=== PATIENT | female | born 2000 ===

== ENCOUNTER 2020-02-25 00:01 | Inpatient (IN) | payer MEDICAID ==
[2020-02-25] MEDS ORDERED: Acetaminophen 500 MG Tab PO PRN ×3 (00:46→13:15)
[2020-02-25] MEDS ORDERED: diphenhydrAMINE 50 MG Cap PO PRN (00:46)
[2020-02-25 01:42] LABS: BLOOD UREA NITROGEN,BUN 10 mg/dL (7.0-18.0); CARBON DIOXIDE,CO2 20.5 mmol/L (21.0-32.0); CHLORIDE,CL 103 mmol/L (98-107); GLUCOSE RANDOM 101 mg/dL (74-106); POTASSIUM,K 4.1 mmol/L (3.5-5.1); SODIUM,NA 138 mmol/L (136-145)
[2020-02-25] MEDS ORDERED: Ondansetron 4 MG/2 ML SDV IVPUSH PRN (03:24)
[2020-02-25] MEDS ORDERED: hydrOXYzine Pamoate 25 MG Cap PO PRN (03:24)
[2020-02-25] MEDS ORDERED: Butorphanol 1 MG/ML SDV IVPUSH PRN ×3 (03:25→04:56)
[2020-02-25] MEDS ORDERED: Lactated Ringers 1,000 ML IV ONE (03:25)
[2020-02-25] MEDS ORDERED: Water For Irrigation,Sterile 1,000 ML Container IRR PRN (04:48)
[2020-02-25] MEDS ORDERED: Sodium Chloride 0.9% 10 ML SDV IV PRN (04:48)
[2020-02-25] MEDS ORDERED: Sodium Chloride 0.9% 2.5 ML Syringe FLUSH PRN (04:48)
[2020-02-25] MEDS ORDERED: Methylergonovine 0.2 MG/1 ML Amp IM PRN (04:48)
[2020-02-25] MEDS ORDERED: Carboprost Tromethamine 250 MCG/1 ML Amp IM PRN (04:48)
[2020-02-25] MEDS ORDERED: Lidocaine 1% 50 ML MDV INJECT PRN (04:48)
[2020-02-25] MEDS ORDERED: Misoprostol 200 MCG Tab PO PRN (04:48)
[2020-02-25] MEDS ORDERED: Sodium Chloride 0.9% 10 ML Syringe FLUSH PRN (04:48)
[2020-02-25] MEDS ORDERED: Tranexamic Acid 1,000 MG in Sodium Chloride 0.9% 100 ML IV PRN (04:48)
[2020-02-25] MEDS ORDERED: Nalbuphine 10 MG/1 ML Vial IVPUSH PRN (04:48)
[2020-02-25] MEDS ORDERED: Oxytocin/0.9 % Sodium Chloride 30 UNIT/500 ML BAG IV SCH (05:00)
[2020-02-25] MEDS: Lactated Ringers 1,000 ML IV SCH ×2 (05:27→06:26)
[2020-02-25] MEDS ORDERED: fentaNYL 100 MCG/2 ML SDV ONE (05:54)
[2020-02-25] MEDS ORDERED: Ropivacaine 0.2% PF 2 MG/ML 20 ML SDV ONE (05:55)
[2020-02-25] MEDS ORDERED: Ropivacaine HCl/PF 100 ML ONE (05:55)
--- NOTE | 2020-02-25 06:38 | PCM.PREANE ---
Preanesthetic Assessment - Procedure Proposed Procedure: CHIVO - Anesthesia/Transfusion/Family Hx Anesthesia History: Prior Anesthesia Without Reaction Family History of Anesthesia Reaction: No Transfusion History: No Prior Transfusion(s) Intubation History: Unknown - Review of Systems General: No Symptoms Pulmonary: No Symptoms Cardiovascular: Other (Recent elevated BP. Pre-eclampsia tests negative.) Gastrointestinal: No Symptoms Neurological: Other (History of Scoliosis.) Other: Reports: Anxiety - Physical Assessment NPO Status Date: 02/25/20 NPO Status Time: 05:00 (Clear liquids) Height: 1.65 m Weight: 81.647 kg ASA Class: 2 Mental Status: Alert & Oriented x3 Airway Class: Mallampati = 1 Dentition: Reports: Normal Dentition Thyro-Mental Finger Breadths: 3 Mouth Opening Finger Breadths: 3 ROM/Head Extension: Full Lungs: Clear to Auscultation Cardiovascular: Regular Rate - Lab Values: Laboratory Last Values WBC 10.44 K/uL (4.0-11.0) 02/25/20 01:09 RBC 4.51 M/uL (4.30-5.90) 02/25/20 01:09 Hgb 13.5 g/dL (12.0-16.0) 02/25/20 01:09 Hct 40.1 % (36.0-46.0) 02/25/20 01:09 MCV 88.9 fL (80.0-98.0) 02/25/20 01:09 MCH 29.9 pg (27.0-32.0) 02/25/20 01:09 MCHC 33.7 g/dL (31.0-37.0) 02/25/20 01:09 RDW Std Deviation 43.2 fl (28.0-62.0) 02/25/20 01:09 RDW Coeff of Marcia 14 % (11.0-15.0) 02/25/20 01:09 Plt Count 172 K/uL (150-400) 02/25/20 01:09 MPV 11.60 fL (7.40-12.00) 02/25/20 01:09 Neut % (Auto) 69.9 % (48.0-80.0) 02/25/20 01:09 Lymph % (Auto) 18.9 % (16.0-40.0) 02/25/20 01:09 [place] % (Auto) 9.6 % (0.0-15.0) 02/25/20 01:09 Eos % (Auto) 1.4 % (0.0-7.0) 02/25/20 01:09 Baso % (Auto) 0.2 % (0.0-1.5) 02/25/20 01:09 Neut # (Auto) 7.3 K/uL (1.4-5.7) H 02/25/20 01:09 Lymph # (Auto) 2.0 K/uL (0.6-2.4) 02/25/20 01:09 [place] # (Auto) 1.0 K/uL (0.0-0.8) H 02/25/20 01:09 Eos # (Auto) 0.2 K/uL (0.0-0.7) 02/25/20 01:09 Baso # (Auto) 0.0 K/uL (0.0-0.1) 02/25/20 01:09 Sodium 138 mmol/L (136-145) 02/25/20 01:09 Potassium 4.1 mmol/L (3.5-5.1) 02/25/20 01:09 Chloride 103 mmol/L (98-107) 02/25/20 01:09 Carbon Dioxide 20.5 mmol/L (21.0-32.0) L 02/25/20 01:09 BUN 10 mg/dL (7.0-18.0) 02/25/20 01:09 Creatinine 0.7 mg/dL (0.6-1.0) 02/25/20 01:09 Est Cr Clr Drug Dosing 116.32 mL/min 02/25/20 01:09 Estimated GFR (MDRD) > 60.0 ml/min 02/25/20 01:09 Glucose 101 mg/dL (74-106) 02/25/20 01:09 Uric Acid 4.2 mg/dL (2.6-7.2) 02/25/20 01:09 Calcium 9.1 mg/dL (8.5-10.1) 02/25/20 01:09 Total Bilirubin 0.2 mg/dL (0.2-1.0) 02/25/20 01:09 AST 18 IU/L (15-37) 02/25/20 01:09 ALT 17 IU/L (14-63) 02/25/20 01:09 Alkaline Phosphatase 122 U/L (46-116) H 02/25/20 01:09 Total Protein 7.4 g/dL (6.4-8.2) 02/25/20 01:09 Albumin 3.2 g/dL (3.4-5.0) L 02/25/20 01:09 Globulin 4.2 g/dL (2.6-4.0) H 02/25/20 01:09 Albumin/Globulin Ratio 0.8 (0.9-1.6) L 02/25/20 01:09 Urine Color YELLOW 02/25/20 01:10 Urine Appearance CLEAR 02/25/20 01:10 Urine pH 6.5 (5.0-8.0) 02/25/20 01:10 Ur Specific [place] 1.010 (1.001-1.035) 02/25/20 01:10 Urine Protein NEGATIVE mg/dL (NEGATIVE) 02/25/20 01:10 Urine Glucose (UA) NEGATIVE mg/dL (NEGATIVE) 02/25/20 01:10 Urine Ketones NEGATIVE mg/dL (NEGATIVE) 02/25/20 01:10 Urine Occult Blood NEGATIVE (NEGATIVE) 02/25/20 01:10 Urine Nitrite NEGATIVE (NEGATIVE) 02/25/20 01:10 Urine Bilirubin NEGATIVE (NEGATIVE) 02/25/20 01:10 Urine Urobilinogen 0.2 EU/dL (<2.0) 02/25/20 01:10 Ur Leukocyte Esterase NEGATIVE (NEGATIVE) 02/25/20 01:10 Urine RBC NONE SEEN (0-2/HPF) 02/25/20 01:10 Urine WBC 0-1 (0-5/HPF) 02/25/20 01:10 Ur Epithelial Cells RARE (NONE-FEW) 02/25/20 01:10 Urine Bacteria RARE (NEGATIVE) 02/25/20 01:10 Urine Mucus LIGHT (NONE-MOD) 02/25/20 01:10 Ur Random Creatinine 50.0 mg/dL 02/25/20 01:10 U Random Total Protein 11.0 mg/dL (<11.9) 02/25/20 01:10 Protein/Creatinin Ratio 0.2 02/25/20 01:10 COVID-19 (MARSHA) NEGATIVE (NEGATIVE) 02/25/20 04:29 Blood Type A POSITIVE 02/25/20 01:09 Antibody Screen NEGATIVE 02/25/20 01:09 - Allergies Allergies/Adverse Reactions: Allergies Allergy/AdvReac Type Severity Reaction Status Date / Time No Known Allergies Allergy Verified 02/25/20 00:21 - Blood Blood Available: No Product(s) Available: None - Anesthesia Plan Pre-Op Medication Ordered: None - Acknowledgements Anesthesia Type Planned: Epidural Pt an Appropriate Candidate for the Planned Anesthesia: Yes Alternatives and Risks of Anesthesia Discussed w Pt/Guardian: Yes Pt/Guardian Understands and Agrees with Anesthesia Plan: Yes Additional Comments: Discussed. ? answered. Accepts. Wishes to proceed. PreAnesthesia Questionnaire Gastrointestinal History: Reports: Other (See Below) Other Gastrointestinal History: Nausea through - takes Zofran [employer] History: Reports: Musculoskeletal History: Reports: None Psychiatric History: Reports: Anxiety Other Psychiatric History: Pt. denies anxiety but states she has "anxiety tendencies" - Past Surgical History Musculoskeletal Surgical History: Reports: Other (See Below) Other Musculoskeletal Surgeries/Procedures:: Right Knee, non malignant tumor removal. - SUBSTANCE USE Smoking Status *Q: Never Smoker Tobacco Use Within Last Twelve Months: No Second Hand Smoke Exposure: No Recreational Drug Use History: No - HOME MEDS Home Medications: Home Meds Ondansetron [Zofran] 1 tab PO Q6HR PRN 02/25/20 [History] Vit #76/Iron,Carb/Fa [Pnv 29-1 Tablet] 1 tab PO DAILY 02/25/20 [History] - CURRENT (IN HOUSE) MEDS Current Meds: Current Medications Acetaminophen (Tylenol Extra Strength) 1,000 mg PO Q6H PRN PRN Reason: Pain Last Admin: 02/25/20 02:05 Dose: 1,000 mg Documented by: Butorphanol Tartrate (Stadol) 1 mg IVPUSH Q1H PRN PRN Reason: Pain Butorphanol Tartrate (Stadol) 1 mg IVPUSH Q1H PRN PRN Reason: Pain Carboprost Tromethamine (Hemabate Ds) 250 mcg IM ASDIRECTED PRN PRN Reason: Post Hemorrhage Diphenhydramine HCl (Benadryl) 50 mg PO ONETIME PRN PRN Reason: Pain Last Admin: 02/25/20 02:06 Dose: 50 mg Documented by: Hydroxyzine Pamoate (Vistaril) 25 mg PO Q6H PRN PRN Reason: Pain Last Admin: 02/25/20 03:37 Dose: 25 mg Documented by: Lactated Ringer's (Ringers, Lactated) 1,000 mls @ 150 mls/hr IV ASDIRECTED ANEL Last Infusion: 02/25/20 06:28 Dose: 150 mls/hr Documented by: Oxytocin/Sodium Chloride (Oxytocin 30 Unit/500 Ml-Ns) 30 unit in 500 mls @ 999 mls/hr IV TITRATE [facility] Tranexamic Acid 1,000 mg/ (Sodium Chloride) 110 mls @ 660 mls/hr IV ONETIME PRN PRN Reason: Bleeding Lidocaine HCl (Xylocaine 1%) 50 ml INJECT ONETIME PRN PRN Reason: Laceration repair Methylergonovine Maleate (Methergine) 0.2 mg IM ASDIRECTED PRN PRN Reason: Post Hemorrhage Misoprostol (Cytotec) 200 mcg PO ONETIME PRN PRN Reason: Post Hemorrhage Nalbuphine HCl (Nubain) 10 mg IVPUSH Q1H PRN PRN Reason: Pain (severe 7-10) Ondansetron HCl (Zofran) 4 mg IVPUSH Q6H PRN PRN Reason: Nausea Last Admin: 02/25/20 03:44 Dose: 4 mg Documented by: Sodium Chloride (Saline Flush) 10 ml FLUSH ASDIRECTED PRN PRN Reason: Keep Vein Open Sodium Chloride (Saline Flush) 2.5 ml FLUSH ASDIRECTED PRN PRN Reason: Keep Vein Open Sodium Chloride (Normal Saline) 10 ml IV ASDIRECTED PRN PRN Reason: IV Use Sterile Water (Sterile Water For Irrigation) 1,000 ml IRR ASDIRECTED PRN PRN Reason: delivery Discontinued Medications Butorphanol Tartrate (Stadol) 1 mg IVPUSH Q1H PRN PRN Reason: Pain Last Admin: 02/25/20 04:24 Dose: 1 mg Documented by: Fentanyl (Sublimaze) Confirm Administered Dose 100 mcg .ROUTE .STK-MED ONE Stop: 02/25/20 05:55 Lactated Ringer's (Ringers, Lactated) 1,000 mls @ 999 mls/hr IV .BOLUS ONE Stop: 02/25/20 04:25 Last Infusion: 02/25/20 05:27 Dose: Infused Documented by: Ropivacaine (Naropin 0.2%) Confirm Administered Dose 100 mls @ as directed .ROUTE .[facility] ONE Stop: 02/25/20 05:56 Ropivacaine (Naropin 0.2%) Confirm Administered Dose 20 ml .[address] .[facility] ONE Stop: 02/25/20 05:56
--- NOTE | 2020-02-25 06:41 | PCM.SN.2 ---
- Free Text/Narrative Note: Requested CHIVO. Discussed, ? answered. Permit signed. Hx scoliosis. Pain 03/27. 4-5 cm. Procedure without issues. Pain 0/10 post.
--- NOTE | 2020-02-25 07:06 | PCM48HPAN ---
Post Anesthesia Note - EVALUATION WITHIN 48HRS OF ANESTHETIC Vital Signs in Normal Range: Yes Patient Participated in Evaluation: Yes Respiratory Function Stable: Yes Airway Patent: Yes Cardiovascular Function Stable: Yes Hydration Status Stable: Yes Pain Control Satisfactory: Yes Nausea and Vomiting Control Satisfactory: Yes Mental Status Recovered: Yes
[2020-02-25] MEDS ORDERED: oxyCODONE 5 MG Tab PO PRN (13:15)
[2020-02-25] MEDS ORDERED: Ibuprofen 400 MG Tab PO PRN (13:15)
[2020-02-25] MEDS ORDERED: Witch Hazel Medicated Pads 40/Jar TOP PRN (13:15)
[2020-02-25] MEDS ORDERED: Measles, Mumps & Rubella Vaccine 0.5 ML SDV SUBCUT ONE (13:15)
[2020-02-25] MEDS ORDERED: Docusate Sodium 100 MG Cap PO PRN (13:15)
[2020-02-25] MEDS ORDERED: Bisacodyl 10 MG Supp RECTAL PRN (13:15)
[2020-02-25] MEDS ORDERED: Lanolin 100% Cream 7 GM Tube TOP PRN (13:15)
[2020-02-25] MEDS ORDERED: Ibuprofen 800 MG Tab PO PRN (13:15)
[2020-02-25] MEDS ORDERED: Benzocaine/Menthol 20%-0.5% Spray 78 GM Cannister TOP PRN (13:15)
--- NOTE | 2020-02-25 13:17 | PCM.DEL ---
L & D Note - General Info Date of Service: 02/25/20 - Delivery Note Labor: Spontaneous Delivery Outcome: Livebirth Delivery Method: Spontaneous Vaginal Delivery-Single Delivery Mode: Spontaneous Presentation: Right Occiput Anterior (VICENTE) Nuchal Cord: None Anesthesia Type: Epidural Amniotic Fluid Description: Clear Episiotomy Type: None Laceration: Sulcus Suture type: Vicryl Suture size: 2-0 (2-0 and 3-0) Placenta: Intact, Spontaneous Cord: 3 Vessels Estimated Blood Loss: 300 Resuscitation Needed: Yes : Suctioned, Stimulated, Warmed Provider: Jeovanny To Score 1 min: 9 Score 5 min: 8 Second Stage Interventions: Reports: Pushing Effectively - General Info Date of Service: 02/25/20 Functional Status: Reports: Pain Controlled - Review of Systems General: Reports: No Symptoms HEENT: Reports: No Symptoms Pulmonary: Reports: No Symptoms Cardiovascular: Reports: No Symptoms Gastrointestinal: Reports: No Symptoms Genitourinary: Reports: No Symptoms Musculoskeletal: Reports: No Symptoms Skin: Reports: No Symptoms Neurological: Reports: No Symptoms Psychiatric: Reports: No Symptoms - Patient Data Weight - Most Recent: 180 lb I&O - Last 24 Hours: Intake & Output 02/24/20 02/25/20 02/25/20 22:59 06:59 14:59 Intake Total 1999 Balance 1999 Lab Results Last 24 Hours: Laboratory Results - last 24 hr 02/25/20 02/25/20 02/25/20 Range/Units 01:09 01:09 01:09 WBC 10.44 (4.0-11.0) K/uL RBC 4.51 (4.30-5.90) M/uL Hgb 13.5 (12.0-16.0) g/dL Hct 40.1 (36.0-46.0) % MCV 88.9 (80.0-98.0) fL MCH 29.9 (27.0-32.0) pg MCHC 33.7 (31.0-37.0) g/dL RDW Std Deviation 43.2 (28.0-62.0) fl RDW Coeff of Marcia 14 (11.0-15.0) % Plt Count 172 (150-400) K/uL MPV 11.60 (7.40-12.00) fL Neut % (Auto) 69.9 (48.0-80.0) % Lymph % (Auto) 18.9 (16.0-40.0) % [place] % (Auto) 9.6 (0.0-15.0) % Eos % (Auto) 1.4 (0.0-7.0) % Baso % (Auto) 0.2 (0.0-1.5) % Neut # (Auto) 7.3 H (1.4-5.7) K/uL Lymph # (Auto) 2.0 (0.6-2.4) K/uL [place] # (Auto) 1.0 H (0.0-0.8) K/uL Eos # (Auto) 0.2 (0.0-0.7) K/uL Baso # (Auto) 0.0 (0.0-0.1) K/uL Sodium 138 (136-145) mmol/L Potassium 4.1 (3.5-5.1) mmol/L Chloride 103 (98-107) mmol/L Carbon Dioxide 20.5 L (21.0-32.0) mmol/L BUN 10 (7.0-18.0) mg/dL Creatinine 0.7 (0.6-1.0) mg/dL Est Cr Clr Drug Dosing 116.32 mL/min Estimated GFR (MDRD) > 60.0 ml/min Glucose 101 (74-106) mg/dL Uric Acid 4.2 (2.6-7.2) mg/dL Calcium 9.1 (8.5-10.1) mg/dL Total Bilirubin 0.2 (0.2-1.0) mg/dL AST 18 (15-37) IU/L ALT 17 (14-63) IU/L Alkaline Phosphatase 122 H (46-116) U/L Total Protein 7.4 (6.4-8.2) g/dL Albumin 3.2 L (3.4-5.0) g/dL Globulin 4.2 H (2.6-4.0) g/dL Albumin/Globulin Ratio 0.8 L (0.9-1.6) Urine Color Urine Appearance Urine pH (5.0-8.0) Ur Specific [place] (1.001-1.035) Urine Protein (NEGATIVE) mg/dL Urine Glucose (UA) (NEGATIVE) mg/dL Urine Ketones (NEGATIVE) mg/dL Urine Occult Blood (NEGATIVE) Urine Nitrite (NEGATIVE) Urine Bilirubin (NEGATIVE) Urine Urobilinogen (<2.0) EU/dL Ur Leukocyte Esterase (NEGATIVE) Urine RBC (0-2/HPF) Urine WBC (0-5/HPF) Ur Epithelial Cells (NONE-FEW) Urine Bacteria (NEGATIVE) Urine Mucus (NONE-MOD) Ur Random Creatinine mg/dL U Random Total Protein (<11.9) mg/dL Protein/Creatinin Ratio COVID-19 (MARSHA) (NEGATIVE) Blood Type A POSITIVE Antibody Screen NEGATIVE 02/25/20 02/25/20 02/25/20 Range/Units 01:10 01:10 04:29 WBC (4.0-11.0) K/uL RBC (4.30-5.90) M/uL Hgb (12.0-16.0) g/dL Hct (36.0-46.0) % MCV (80.0-98.0) fL MCH (27.0-32.0) pg MCHC (31.0-37.0) g/dL RDW Std Deviation (28.0-62.0) fl RDW Coeff of Marcia (11.0-15.0) % Plt Count (150-400) K/uL MPV (7.40-12.00) fL Neut % (Auto) (48.0-80.0) % Lymph % (Auto) (16.0-40.0) % [place] % (Auto) (0.0-15.0) % Eos % (Auto) (0.0-7.0) % Baso % (Auto) (0.0-1.5) % Neut # (Auto) (1.4-5.7) K/uL Lymph # (Auto) (0.6-2.4) K/uL [place] # (Auto) (0.0-0.8) K/uL Eos # (Auto) (0.0-0.7) K/uL Baso # (Auto) (0.0-0.1) K/uL Sodium (136-145) mmol/L Potassium (3.5-5.1) mmol/L Chloride (98-107) mmol/L Carbon Dioxide (21.0-32.0) mmol/L BUN (7.0-18.0) mg/dL Creatinine (0.6-1.0) mg/dL Est Cr Clr Drug Dosing mL/min Estimated GFR (MDRD) ml/min Glucose (74-106) mg/dL Uric Acid (2.6-7.2) mg/dL Calcium (8.5-10.1) mg/dL Total Bilirubin (0.2-1.0) mg/dL AST (15-37) IU/L ALT (14-63) IU/L Alkaline Phosphatase (46-116) U/L Total Protein (6.4-8.2) g/dL Albumin (3.4-5.0) g/dL Globulin (2.6-4.0) g/dL Albumin/Globulin Ratio (0.9-1.6) Urine Color YELLOW Urine Appearance CLEAR Urine pH 6.5 (5.0-8.0) Ur Specific [place] 1.010 (1.001-1.035) Urine Protein NEGATIVE (NEGATIVE) mg/dL Urine Glucose (UA) NEGATIVE (NEGATIVE) mg/dL Urine Ketones NEGATIVE (NEGATIVE) mg/dL Urine Occult Blood NEGATIVE (NEGATIVE) Urine Nitrite NEGATIVE (NEGATIVE) Urine Bilirubin NEGATIVE (NEGATIVE) Urine Urobilinogen 0.2 (<2.0) EU/dL Ur Leukocyte Esterase NEGATIVE (NEGATIVE) Urine RBC NONE SEEN (0-2/HPF) Urine WBC 0-1 (0-5/HPF) Ur Epithelial Cells RARE (NONE-FEW) Urine Bacteria RARE (NEGATIVE) Urine Mucus LIGHT (NONE-MOD) Ur Random Creatinine 50.0 mg/dL U Random Total Protein 11.0 (<11.9) mg/dL Protein/Creatinin Ratio 0.2 COVID-19 (MARSHA) NEGATIVE (NEGATIVE) Blood Type Antibody Screen Med Orders - Current: Current Medications Acetaminophen (Tylenol Extra Strength) 1,000 mg PO Q6H PRN PRN Reason: Pain Last Admin: 02/25/20 02:05 Dose: 1,000 mg Documented by: Butorphanol Tartrate (Stadol) 1 mg IVPUSH Q1H PRN PRN Reason: Pain Butorphanol Tartrate (Stadol) 1 mg IVPUSH Q1H PRN PRN Reason: Pain Carboprost Tromethamine (Hemabate Ds) 250 mcg IM ASDIRECTED PRN PRN Reason: Post Hemorrhage Diphenhydramine HCl (Benadryl) 50 mg PO ONETIME PRN PRN Reason: Pain Last Admin: 02/25/20 02:06 Dose: 50 mg Documented by: Hydroxyzine Pamoate (Vistaril) 25 mg PO Q6H PRN PRN Reason: Pain Last Admin: 02/25/20 03:37 Dose: 25 mg Documented by: Lactated Ringer's (Ringers, Lactated) 1,000 mls @ 150 mls/hr IV ASDIRECTED ANEL Last Infusion: 02/25/20 06:28 Dose: 150 mls/hr Documented by: Oxytocin/Sodium Chloride (Oxytocin 30 Unit/500 Ml-Ns) 30 unit in 500 mls @ 999 mls/hr IV TITRATE ANEL Last Admin: 02/25/20 12:29 Dose: 999 mls/hr Documented by: Tranexamic Acid 1,000 mg/ (Sodium Chloride) 110 mls @ 660 mls/hr IV ONETIME PRN PRN Reason: Bleeding Lidocaine HCl (Xylocaine 1%) 50 ml INJECT ONETIME PRN PRN Reason: Laceration repair Methylergonovine Maleate (Methergine) 0.2 mg IM ASDIRECTED PRN PRN Reason: Post Hemorrhage Misoprostol (Cytotec) 200 mcg PO ONETIME PRN PRN Reason: Post Hemorrhage Nalbuphine HCl (Nubain) 10 mg IVPUSH Q1H PRN PRN Reason: Pain (severe 7-10) Ondansetron HCl (Zofran) 4 mg IVPUSH Q6H PRN PRN Reason: Nausea Last Admin: 02/25/20 03:44 Dose: 4 mg Documented by: Sodium Chloride (Saline Flush) 10 ml FLUSH ASDIRECTED PRN PRN Reason: Keep Vein Open Sodium Chloride (Saline Flush) 2.5 ml FLUSH ASDIRECTED PRN PRN Reason: Keep Vein Open Sodium Chloride (Normal Saline) 10 ml IV ASDIRECTED PRN PRN Reason: IV Use Sterile Water (Sterile Water For Irrigation) 1,000 ml IRR ASDIRECTED PRN PRN Reason: delivery Discontinued Medications Butorphanol Tartrate (Stadol) 1 mg IVPUSH Q1H PRN PRN Reason: Pain Last Admin: 02/25/20 04:24 Dose: 1 mg Documented by: Fentanyl (Sublimaze) Confirm Administered Dose 100 mcg .ROUTE .STK-MED ONE Stop: 02/25/20 05:55 Lactated Ringer's (Ringers, Lactated) 1,000 mls @ 999 mls/hr IV .BOLUS ONE Stop: 02/25/20 04:25 Last Infusion: 02/25/20 05:27 Dose: Infused Documented by: Ropivacaine (Naropin 0.2%) Confirm Administered Dose 100 mls @ as directed .ROUTE .STK-MED ONE Stop: 02/25/20 05:56 Ropivacaine (Naropin 0.2%) Confirm Administered Dose 20 ml .ROUTE .STK-MED ONE Stop: 02/25/20 05:56 - Exam Quality Assessment: Supplemental Oxygen - Problem List & Annotations (1) Vaginal delivery SNOMED Code(s): 683770924 Code(s): O80 - ENCOUNTER FOR FULL-TERM UNCOMPLICATED DELIVERY Status: Acute Current Visit: Yes - Problem List Review Problem List Initiated/Reviewed/Updated: Yes - Assessment Assessment:: 19yo s/p - Plan Plan:: -routine post care -CBC tomorrow -MMR before discharge
--- NOTE | 2020-02-25 20:46 | OR ---
SURGEON: Jeovanny To MD DATE OF PROCEDURE: 02/25/2020 INDICATION FOR PROCEDURE: A 19-year-old, G1, P0, at 40 weeks and 1 day, admitted with early labor. The patient had regular contractions and made cervical change to 4 cm. She had an epidural for anesthesia with good pain control. She had category 1 tracing and was GBS negative. She had AROM for augmentation of labor. She progressed to fully dilated and having the urge to push. PREOPERATIVE DIAGNOSIS: Kern intrauterine at 40 weeks and 1 day. POSTOPERATIVE DIAGNOSIS: [place]ern intrauterine at 40 weeks and 1 day. PROCEDURE PERFORMED: Normal spontaneous vaginal delivery, repair of bilateral sulcal lacerations. ANESTHESIA: Epidural. ANESTHESIOLOGIST: Dr.Z Gill FINDINGS: Viable male . score of 9 and 8. weight was 3380g. Baby had desaturations after and required respiratory support. EBL: 300cc DESCRIPTION OF PROCEDURE: The patient pushed with contractions for approximately 30 minutes with good descent. head delivered in occiput anterior position over intact perineum, restituted ROT. No nuchal cord was noted. Anterior shoulder delivered easily followed by posterior shoulder and remaining body. The baby was placed on maternal chest and evaluated by awaiting nursery staff. The baby was pink, crying, and moving all extremities immediately after delivery. The umbilical cord was clamped and cut after 60 seconds and no longer pulsating. Umbilical cord gases were obtained. The placenta was removed with gentle traction on the umbilical cord. It was examined and found to be intact with 3- vessel cord. The fundus was firm and at the umbilicus. A small amount of blood clot was expressed with fundal massage. Perineum was examined, there were bilateral sulcal tears. They were repaired in usual fashion using 2-0 and 3-0 Vicryl. Hemostasis was confirmed after repair. The patient tolerated the procedure well, was given care instructions. BECKY / OPAL /[id number] MTDFlakita
--- NOTE | 2020-02-26 07:37 | PCM48HPAN ---
Post Anesthesia Note - EVALUATION WITHIN 48HRS OF ANESTHETIC Vital Signs in Normal Range: Yes Patient Participated in Evaluation: Yes Respiratory Function Stable: Yes Airway Patent: Yes Cardiovascular Function Stable: Yes Hydration Status Stable: Yes Pain Control Satisfactory: Yes Nausea and Vomiting Control Satisfactory: Yes Mental Status Recovered: Yes - COMMENTS/OBSERVATIONS Free Text/Narrative:: Doing well. No problems at present.
--- NOTE | 2020-02-26 07:50 | PCM.PNPP ---
<AliciaMalorie - Last Filed: 02/26/20 07:46> - General Info Date of Service: 02/26/20 Admission Dx/Problem (Free Text): 19yo s/p PPD1 Subjective Update: doing well; trying to breastfeed; continues to stay in nursery for O2 monitoring Functional Status: Reports: Pain Controlled, Tolerating Diet, Ambulating, Urinating - Review of Systems General: Reports: No Symptoms HEENT: Reports: No Symptoms Pulmonary: Reports: No Symptoms Cardiovascular: Reports: No Symptoms Gastrointestinal: Reports: No Symptoms Genitourinary: Reports: No Symptoms Musculoskeletal: Reports: No Symptoms Skin: Reports: No Symptoms Neurological: Reports: No Symptoms Psychiatric: Reports: No Symptoms - General Info Date of Service: 02/26/20 - Patient Data Weight - Most Recent: 180 lb Lab Results - Last 24 Hours: Laboratory Results - last 24 hr 02/25/20 02/26/20 Range/Units 12:28 05:50 Hgb 10.3 L (12.0-16.0) g/dL Hct 31.6 L (36.0-46.0) % Cord ABG pH 7.170 L (7.18-7.38) Cord ABG Base Excess -9 (-10--2) Cord VBG pH 7.196 L (7.25-7.45) Cord VBG Base Excess -9 (-10--2) Med Orders - Current: Current Medications Acetaminophen (Tylenol Extra Strength) 1,000 mg PO Q6H PRN PRN Reason: Pain Last Admin: 02/25/20 02:05 Dose: 1,000 mg Documented by: Acetaminophen (Tylenol Extra Strength) 500 mg PO Q4H PRN PRN Reason: Pain Acetaminophen (Tylenol Extra Strength) 1,000 mg PO Q4H PRN PRN Reason: Pain Last Admin: 02/25/20 21:37 Dose: 1,000 mg Documented by: Benzocaine/Menthol (Dermoplast Pain Relief 20%-0.5% [place]) 78 gm TOP ASDIRECTED PRN PRN Reason: Perineal Comfort Measure Last Admin: 02/25/20 15:46 Dose: 1 can Documented by: Bisacodyl (Dulcolax) 10 mg RECTAL ONETIME PRN PRN Reason: Constipation Butorphanol Tartrate (Stadol) 1 mg IVPUSH Q1H PRN PRN Reason: Pain Butorphanol Tartrate (Stadol) 1 mg IVPUSH Q1H PRN PRN Reason: Pain Carboprost Tromethamine (Hemabate Ds) 250 mcg IM ASDIRECTED PRN PRN Reason: Post Hemorrhage Diphenhydramine HCl (Benadryl) 50 mg PO ONETIME PRN PRN Reason: Pain Last Admin: 02/25/20 02:06 Dose: 50 mg Documented by: Docusate Sodium (Colace) 100 mg PO BID PRN PRN Reason: Constipation Emollient Ointment (Lansinoh Hpa) 0 gm TOP ASDIRECTED PRN PRN Reason: Sore Nipples Hydroxyzine Pamoate (Vistaril) 25 mg PO Q6H PRN PRN Reason: Pain Last Admin: 02/25/20 03:37 Dose: 25 mg Documented by: Lactated Ringer's (Ringers, Lactated) 1,000 mls @ 150 mls/hr IV ASDIRECTED NAEL Last Infusion: 02/25/20 06:28 Dose: 150 mls/hr Documented by: Oxytocin/Sodium Chloride (Oxytocin 30 Unit/500 Ml-Ns) 30 unit in 500 mls @ 999 mls/hr IV TITRATE [facility] Last Admin: 02/25/20 12:29 Dose: 999 mls/hr Documented by: Tranexamic Acid 1,000 mg/ (Sodium Chloride) 110 mls @ 660 mls/hr IV ONETIME PRN PRN Reason: Bleeding Ibuprofen (Motrin) 400 mg PO Q4H PRN PRN Reason: Pain Ibuprofen (Motrin) 800 mg PO Q6H PRN PRN Reason: Pain Lidocaine HCl (Xylocaine 1%) 50 ml INJECT ONETIME PRN PRN Reason: Laceration repair Methylergonovine Maleate (Methergine) 0.2 mg IM ASDIRECTED PRN PRN Reason: Post Hemorrhage Misoprostol (Cytotec) 200 mcg PO ONETIME PRN PRN Reason: Post Hemorrhage Nalbuphine HCl (Nubain) 10 mg IVPUSH Q1H PRN PRN Reason: Pain (severe 7-10) Ondansetron HCl (Zofran) 4 mg IVPUSH Q6H PRN PRN Reason: Nausea Last Admin: 02/25/20 03:44 Dose: 4 mg Documented by: Oxycodone HCl (Oxycodone) 5 mg PO Q2H PRN PRN Reason: Pain Sodium Chloride (Saline Flush) 10 ml FLUSH ASDIRECTED PRN PRN Reason: Keep Vein Open Sodium Chloride (Saline Flush) 2.5 ml FLUSH ASDIRECTED PRN PRN Reason: Keep Vein Open Sodium Chloride (Normal Saline) 10 ml IV ASDIRECTED PRN PRN Reason: IV Use Sterile Water (Sterile Water For Irrigation) 1,000 ml IRR ASDIRECTED PRN PRN Reason: delivery Neftaly Conti (Tucks) 1 pad TOP ASDIRECTED PRN PRN Reason: comfort care Last Admin: 02/25/20 15:46 Dose: 1 tub Documented by: Discontinued Medications Butorphanol Tartrate (Stadol) 1 mg IVPUSH Q1H PRN PRN Reason: Pain Last Admin: 02/25/20 04:24 Dose: 1 mg Documented by: Fentanyl (Sublimaze) Confirm Administered Dose 100 mcg .ROUTE .STK-MED ONE Stop: 02/25/20 05:55 Lactated Ringer's (Ringers, Lactated) 1,000 mls @ 999 mls/hr IV .BOLUS ONE Stop: 02/25/20 04:25 Last Infusion: 02/25/20 05:27 Dose: Infused Documented by: Ropivacaine (Naropin 0.2%) Confirm Administered Dose 100 mls @ as directed .ROUTE .STK-MED ONE Stop: 02/25/20 05:56 Measles/Mumps/Rubella Vaccine Live (M-M-R Ii Vaccine) 0.5 ml SUBCUT .ONCE ONE Stop: 02/25/20 13:16 Ropivacaine (Naropin 0.2%) Confirm Administered Dose 20 ml .ROUTE .STK-MED ONE Stop: 02/25/20 05:56 - Infant Interaction Infant Disposition, : [place] to Nursery Feeding: Encouraged to Breastfeed Support Person: Significant Other - Recovery Exam Fundal Tone: Firm Fundal Level: At Umbilicus Fundal Placement: Midline Lochia Amount: Scant Lochia Color: Rubra/Red Episiotomy/Laceration: Approximated Urinary Elimination: Voided - Exam General: Alert, Oriented, No Acute Distress Neck: Supple Extremities: Normal Inspection, Normal Range of Motion Neurological: No New Focal Deficit - Problem List & Annotations (1) Vaginal delivery SNOMED Code(s): 940000972 Code(s): O80 - ENCOUNTER FOR FULL-TERM UNCOMPLICATED DELIVERY Status: Acute Current Visit: Yes - Problem List Review Problem List Initiated/Reviewed/Updated: Yes - Assessment Assessment:: 19yo s/p PPD1 -Hgb 10.3 today - Plan Plan:: -routine post care -MMR before discharge <Jeovanny To - Last Filed: 02/26/20 09:26> - Patient Data Vital Signs - Most Recent: Last Vital Signs Temp 36.4 C 02/26/20 08:04 Pulse 82 02/26/20 08:04 Resp 16 02/26/20 08:04 BP 116/69 02/26/20 08:04 Pulse Ox 97 02/26/20 08:04 Lab Results - Last 24 Hours: Laboratory Results - last 24 hr 02/25/20 02/26/20 Range/Units 12:28 05:50 Hgb 10.3 L (12.0-16.0) g/dL Hct 31.6 L (36.0-46.0) % Cord ABG pH 7.170 L (7.18-7.38) Cord ABG Base Excess -9 (-10--2) Cord VBG pH 7.196 L (7.25-7.45) Cord VBG Base Excess -9 (-10--2) Med Orders - Current: Current Medications Acetaminophen (Tylenol Extra Strength) 1,000 mg PO Q6H PRN PRN Reason: Pain Last Admin: 02/25/20 02:05 Dose: 1,000 mg Documented by: Acetaminophen (Tylenol Extra Strength) 500 mg PO Q4H PRN PRN Reason: Pain Acetaminophen (Tylenol Extra Strength) 1,000 mg PO Q4H PRN PRN Reason: Pain Last Admin: 02/25/20 21:37 Dose: 1,000 mg Documented by: Benzocaine/Menthol (Dermoplast Pain Relief 20%-0.5% [place]) 78 gm TOP ASDIRECTED PRN PRN Reason: Perineal Comfort Measure Last Admin: 02/25/20 15:46 Dose: 1 can Documented by: Bisacodyl (Dulcolax) 10 mg RECTAL ONETIME PRN PRN Reason: Constipation Butorphanol Tartrate (Stadol) 1 mg IVPUSH Q1H PRN PRN Reason: Pain Butorphanol Tartrate (Stadol) 1 mg IVPUSH Q1H PRN PRN Reason: Pain Carboprost Tromethamine (Hemabate Ds) 250 mcg IM ASDIRECTED PRN PRN Reason: Post Hemorrhage Diphenhydramine HCl (Benadryl) 50 mg PO ONETIME PRN PRN Reason: Pain Last Admin: 02/25/20 02:06 Dose: 50 mg Documented by: Docusate Sodium (Colace) 100 mg PO BID PRN PRN Reason: Constipation Emollient Ointment (Lansinoh Hpa) 0 gm TOP ASDIRECTED PRN PRN Reason: Sore Nipples Hydroxyzine Pamoate (Vistaril) 25 mg PO Q6H PRN PRN Reason: Pain Last Admin: 02/25/20 03:37 Dose: 25 mg Documented by: Lactated Ringer's (Ringers, Lactated) 1,000 mls @ 150 mls/hr IV ASDIRECTED [facility] Last Infusion: 02/25/20 06:28 Dose: 150 mls/hr Documented by: Oxytocin/Sodium Chloride (Oxytocin 30 Unit/500 Ml-Ns) 30 unit in 500 mls @ 999 mls/hr IV TITRATE [facility] Last Admin: 02/25/20 12:29 Dose: 999 mls/hr Documented by: Tranexamic Acid 1,000 mg/ (Sodium Chloride) 110 mls @ 660 mls/hr IV ONETIME PRN PRN Reason: Bleeding Ibuprofen (Motrin) 400 mg PO Q4H PRN PRN Reason: Pain Ibuprofen (Motrin) 800 mg PO Q6H PRN PRN Reason: Pain Last Admin: 02/26/20 08:45 Dose: 800 mg Documented by: Lidocaine HCl (Xylocaine 1%) 50 ml INJECT ONETIME PRN PRN Reason: Laceration repair Methylergonovine Maleate (Methergine) 0.2 mg IM ASDIRECTED PRN PRN Reason: Post Hemorrhage Misoprostol (Cytotec) 200 mcg PO ONETIME PRN PRN Reason: Post Hemorrhage Nalbuphine HCl (Nubain) 10 mg IVPUSH Q1H PRN PRN Reason: Pain (severe 7-10) Ondansetron HCl (Zofran) 4 mg IVPUSH Q6H PRN PRN Reason: Nausea Last Admin: 02/25/20 03:44 Dose: 4 mg Documented by: Oxycodone HCl (Oxycodone) 5 mg PO Q2H PRN PRN Reason: Pain Sodium Chloride (Saline Flush) 10 ml FLUSH ASDIRECTED PRN PRN Reason: Keep Vein Open Sodium Chloride (Saline Flush) 2.5 ml FLUSH ASDIRECTED PRN PRN Reason: Keep Vein Open Sodium Chloride (Normal Saline) 10 ml IV ASDIRECTED PRN PRN Reason: IV Use Sterile Water (Sterile Water For Irrigation) 1,000 ml IRR ASDIRECTED PRN PRN Reason: delivery Witch Sushila (Tucks) 1 pad TOP ASDIRECTED PRN PRN Reason: comfort care Last Admin: 02/25/20 15:46 Dose: 1 tub Documented by: Discontinued Medications Butorphanol Tartrate (Stadol) 1 mg IVPUSH Q1H PRN PRN Reason: Pain Last Admin: 02/25/20 04:24 Dose: 1 mg Documented by: Fentanyl (Sublimaze) Confirm Administered Dose 100 mcg .ROUTE .STK-MED ONE Stop: 02/25/20 05:55 Last Admin: 02/26/20 09:03 Dose: Not Given Documented by: Lactated Ringer's (Ringers, Lactated) 1,000 mls @ 999 mls/hr IV .BOLUS ONE Stop: 02/25/20 04:25 Last Infusion: 02/25/20 05:27 Dose: Infused Documented by: Ropivacaine (Naropin 0.2%) Confirm Administered Dose 100 mls @ as directed .ROUTE .STK-MED ONE Stop: 02/25/20 05:56 Last Admin: 02/26/20 09:02 Dose: Not Given Documented by: Measles/Mumps/Rubella Vaccine Live (M-M-R Ii Vaccine) 0.5 ml SUBCUT .ONCE ONE Stop: 02/25/20 13:16 Ropivacaine (Naropin 0.2%) Confirm Administered Dose 20 ml .ROUTE .STK-MED ONE Stop: 02/25/20 05:56 Last Admin: 02/26/20 09:02 Dose: Not Given Documented by: - Interaction Interaction: Holding Infant - Exam HEENT: Pupils Equal, Pupils Reactive Neck: Trachea Midline, No JVD Lungs: Normal Respiratory Effort GI/Abdominal Exam: Normal Bowel Sounds, Soft, Non-Tender Extremities: Non-Tender, No Pedal Edema Skin: Warm, Dry, Intact Psy/Mental Status: Alert, Normal Affect, Normal Mood - My Orders Last 24 Hours: My Active Orders 02/25/20 13:15 Patient Status [ADT] Routine May Shower [RC] ASDIRECTED Up ad Kathy [RC] ASDIRECTED Vital Signs [RC] PER UNIT ROUTINE Acetaminophen [Tylenol Extra Strength] 1,000 mg PO Q4H PRN Acetaminophen [Tylenol Extra Strength] 500 mg PO Q4H PRN Benzocaine/Menthol [Dermoplast Pain Relief 20%-0.5% [place]] 78 gm TOP ASDIRECTED PRN Docusate Sodium [Colace] 100 mg PO BID PRN Ibuprofen [Motrin] 400 mg PO Q4H PRN Ibuprofen [Motrin] 800 mg PO Q6H PRN Lanolin [Lansinoh HPA] See Dose Instructions TOP ASDIRECTED PRN bisacodyL [Dulcolax] 10 mg RECTAL ONETIME PRN oxyCODONE 5 mg PO Q2H PRN witch Sushila [Tucks] 1 pad TOP ASDIRECTED PRN Assess Lochia [WOMSER] Per Unit Routine Assess Uterine Involution [WOMSER] Per Unit Routine Ice Therapy [OM.PC] Per Unit Routine Perineal Care [OM.PC] Per Unit Routine Peripheral IV Discontinue [OM.PC] Routine 02/25/20 13:16 Cooling Warming Measures [RC] ASDIRECTED 02/25/20 Dinner Regular Diet [DIET] - Plan Plan:: 19yo PPD1 s/p . Stable and recovering well. Hgb 10.3, bleeding light, continue iron supplements after discharge. Baby is requiring O2 in nursery, plan for discharge home tomorrow.
--- NOTE | 2020-02-27 08:05 | PCM.PNPP ---
<Malorie Vargas - Last Filed: 02/27/20 08:02> - General Info Date of Service: 02/27/20 Admission Dx/Problem (Free Text): 19yo s/p PPD2 Subjective Update: -doing well; has not had a bowel movement yet. -; infant off supplemental O2 and doing well Functional Status: Reports: Pain Controlled, Tolerating Diet, Ambulating, Urinating - Review of Systems General: Reports: No Symptoms HEENT: Reports: No Symptoms Pulmonary: Reports: No Symptoms Cardiovascular: Reports: No Symptoms Gastrointestinal: Reports: No Symptoms Genitourinary: Reports: No Symptoms Musculoskeletal: Reports: No Symptoms Skin: Reports: No Symptoms Neurological: Reports: No Symptoms Psychiatric: Reports: No Symptoms - General Info Date of Service: 02/27/20 - Patient Data Vital Signs - Most Recent: Last Vital Signs Temp 97.7 F 02/27/20 07:32 Pulse 81 02/27/20 07:32 Resp 18 02/27/20 07:32 BP 121/77 02/27/20 07:32 Pulse Ox 97 02/27/20 07:32 Weight - Most Recent: 180 lb Med Orders - Current: Current Medications Acetaminophen (Tylenol Extra Strength) 1,000 mg PO Q6H PRN PRN Reason: Pain Last Admin: 02/25/20 02:05 Dose: 1,000 mg Documented by: Acetaminophen (Tylenol Extra Strength) 500 mg PO Q4H PRN PRN Reason: Pain Acetaminophen (Tylenol Extra Strength) 1,000 mg PO Q4H PRN PRN Reason: Pain Last Admin: 02/25/20 21:37 Dose: 1,000 mg Documented by: Benzocaine/Menthol (Dermoplast Pain Relief 20%-0.5% [place]) 78 gm TOP ASDIRECTED PRN PRN Reason: Perineal Comfort Measure Last Admin: 02/25/20 15:46 Dose: 1 can Documented by: Bisacodyl (Dulcolax) 10 mg RECTAL ONETIME PRN PRN Reason: Constipation Butorphanol Tartrate (Stadol) 1 mg IVPUSH Q1H PRN PRN Reason: Pain Butorphanol Tartrate (Stadol) 1 mg IVPUSH Q1H PRN PRN Reason: Pain Carboprost Tromethamine (Hemabate Ds) 250 mcg IM ASDIRECTED PRN PRN Reason: Post Hemorrhage Diphenhydramine HCl (Benadryl) 50 mg PO ONETIME PRN PRN Reason: Pain Last Admin: 02/25/20 02:06 Dose: 50 mg Documented by: Docusate Sodium (Colace) 100 mg PO BID PRN PRN Reason: Constipation Emollient Ointment (Lansinoh Hpa) 0 gm TOP ASDIRECTED PRN PRN Reason: Sore Nipples Hydroxyzine Pamoate (Vistaril) 25 mg PO Q6H PRN PRN Reason: Pain Last Admin: 02/25/20 03:37 Dose: 25 mg Documented by: Lactated Ringer's (Ringers, Lactated) 1,000 mls @ 150 mls/hr IV ASDIRECTED ANEL Last Infusion: 02/25/20 06:28 Dose: 150 mls/hr Documented by: Oxytocin/Sodium Chloride (Oxytocin 30 Unit/500 Ml-Ns) 30 unit in 500 mls @ 999 mls/hr IV TITRATE [facility] [place] Last Admin: 02/25/20 12:29 Dose: 999 mls/hr Documented by: Tranexamic Acid 1,000 mg/ (Sodium Chloride) 110 mls @ 660 mls/hr IV ONETIME PRN PRN Reason: Bleeding Ibuprofen (Motrin) 400 mg PO Q4H PRN PRN Reason: Pain Ibuprofen (Motrin) 800 mg PO Q6H PRN PRN Reason: Pain Last Admin: 02/26/20 08:45 Dose: 800 mg Documented by: Lidocaine HCl (Xylocaine 1%) 50 ml INJECT ONETIME PRN PRN Reason: Laceration repair Methylergonovine Maleate (Methergine) 0.2 mg IM ASDIRECTED PRN PRN Reason: Post Hemorrhage Misoprostol (Cytotec) 200 mcg PO ONETIME PRN PRN Reason: Post Hemorrhage Nalbuphine HCl (Nubain) 10 mg IVPUSH Q1H PRN PRN Reason: Pain (severe 7-10) Ondansetron HCl (Zofran) 4 mg IVPUSH Q6H PRN PRN Reason: Nausea Last Admin: 02/25/20 03:44 Dose: 4 mg Documented by: Oxycodone HCl (Oxycodone) 5 mg PO Q2H PRN PRN Reason: Pain Sodium Chloride (Saline Flush) 10 ml FLUSH ASDIRECTED PRN PRN Reason: Keep Vein Open Sodium Chloride (Saline Flush) 2.5 ml FLUSH ASDIRECTED PRN PRN Reason: Keep Vein Open Sodium Chloride (Normal Saline) 10 ml IV ASDIRECTED PRN PRN Reason: IV Use Sterile Water (Sterile Water For Irrigation) 1,000 ml IRR ASDIRECTED PRN PRN Reason: delivery Neftaly Conti (Tucks) 1 pad TOP ASDIRECTED PRN PRN Reason: comfort care Last Admin: 02/25/20 15:46 Dose: 1 tub Documented by: Discontinued Medications Butorphanol Tartrate (Stadol) 1 mg IVPUSH Q1H PRN PRN Reason: Pain Last Admin: 02/25/20 04:24 Dose: 1 mg Documented by: Fentanyl (Sublimaze) Confirm Administered Dose 100 mcg .ROUTE .STK-MED ONE Stop: 02/25/20 05:55 Last Admin: 02/26/20 09:03 Dose: Not Given Documented by: Lactated Ringer's (Ringers, Lactated) 1,000 mls @ 999 mls/hr IV .BOLUS ONE Stop: 02/25/20 04:25 Last Infusion: 02/25/20 05:27 Dose: Infused Documented by: Ropivacaine (Naropin 0.2%) Confirm Administered Dose 100 mls @ as directed .ROUTE .STK-MED ONE Stop: 02/25/20 05:56 Last Admin: 02/26/20 09:02 Dose: Not Given Documented by: Measles/Mumps/Rubella Vaccine Live (M-M-R Ii Vaccine) 0.5 ml SUBCUT .ONCE ONE Stop: 02/25/20 13:16 Ropivacaine (Naropin 0.2%) Confirm Administered Dose 20 ml .ROUTE .STK-MED ONE Stop: 02/25/20 05:56 Last Admin: 02/26/20 09:02 Dose: Not Given Documented by: - Interaction Disposition, : in Room with Family Infant Feeding: Breastfed Infant; Nursed Well Support Person: Significant Other - Recovery Exam Fundal Tone: Firm Fundal Level: 1 Fingerbreadths Below Umbilicus Fundal Placement: Midline Lochia Amount: Small Lochia Color: Rubra/Red Perineum Description: Edematous Episiotomy/Laceration: Approximated Bladder Status: Voiding Urinary Elimination: Voided - Exam General: Alert, Oriented HEENT: Mucous Membr. Moist/[place] Neck: Supple Lungs: Clear to Auscultation Cardiovascular: Regular Rate, Regular Rhythm GI/Abdominal Exam: Soft, Non-Tender Extremities: Normal Range of Motion Skin: Warm, Dry Neurological: No New Focal Deficit Psy/Mental Status: Alert, Normal Affect, Normal Mood - Problem List & Annotations (1) Vaginal delivery SNOMED Code(s): 590141873 Code(s): O80 - ENCOUNTER FOR FULL-TERM UNCOMPLICATED DELIVERY Status: Acute Current Visit: Yes - Problem List Review Problem List Initiated/Reviewed/Updated: Yes - Assessment Assessment:: 19yo s/p PPD2 - Plan Plan:: 19yo PPD2 s/p . Stable and recovering well. Continue iron supplements after discharge. MMR prior to discharge. no longer requiring supplemental O2. Plan to discharge home today. <Jeovanny To - Last Filed: 02/27/20 10:53> - Patient Data Vital Signs - Most Recent: Last Vital Signs Temp 36.5 C 02/27/20 07:32 Pulse 81 02/27/20 07:32 Resp 18 02/27/20 07:32 BP 121/77 02/27/20 07:32 Pulse Ox 97 02/27/20 07:32 Med Orders - Current: Current Medications Acetaminophen (Tylenol Extra Strength) 1,000 mg PO Q6H PRN PRN Reason: Pain Last Admin: 02/25/20 02:05 Dose: 1,000 mg Documented by: Acetaminophen (Tylenol Extra Strength) 500 mg PO Q4H PRN PRN Reason: Pain Acetaminophen (Tylenol Extra Strength) 1,000 mg PO Q4H PRN PRN Reason: Pain Last Admin: 02/25/20 21:37 Dose: 1,000 mg Documented by: Benzocaine/Menthol (Dermoplast Pain Relief 20%-0.5% [place]) 78 gm TOP ASDIRECTED PRN PRN Reason: Perineal Comfort Measure Last Admin: 02/25/20 15:46 Dose: 1 can Documented by: Bisacodyl (Dulcolax) 10 mg RECTAL ONETIME PRN PRN Reason: Constipation Butorphanol Tartrate (Stadol) 1 mg IVPUSH Q1H PRN PRN Reason: Pain Butorphanol Tartrate (Stadol) 1 mg IVPUSH Q1H PRN PRN Reason: Pain Carboprost Tromethamine (Hemabate Ds) 250 mcg IM ASDIRECTED PRN PRN Reason: Post Hemorrhage Diphenhydramine HCl (Benadryl) 50 mg PO ONETIME PRN PRN Reason: Pain Last Admin: 02/25/20 02:06 Dose: 50 mg Documented by: Docusate Sodium (Colace) 100 mg PO BID PRN PRN Reason: Constipation Emollient Ointment (Lansinoh Hpa) 0 gm TOP ASDIRECTED PRN PRN Reason: Sore Nipples Hydroxyzine Pamoate (Vistaril) 25 mg PO Q6H PRN PRN Reason: Pain Last Admin: 02/25/20 03:37 Dose: 25 mg Documented by: Lactated Ringer's (Ringers, Lactated) 1,000 mls @ 150 mls/hr IV ASDIRECTED ANEL Last Infusion: 02/25/20 06:28 Dose: 150 mls/hr Documented by: Oxytocin/Sodium Chloride (Oxytocin 30 Unit/500 Ml-Ns) 30 unit in 500 mls @ 999 mls/hr IV TITRATE [facility] [place] Last Admin: 02/25/20 12:29 Dose: 999 mls/hr Documented by: Tranexamic Acid 1,000 mg/ (Sodium Chloride) 110 mls @ 660 mls/hr IV ONETIME PRN PRN Reason: Bleeding Ibuprofen (Motrin) 400 mg PO Q4H PRN PRN Reason: Pain Ibuprofen (Motrin) 800 mg PO Q6H PRN PRN Reason: Pain Last Admin: 02/26/20 08:45 Dose: 800 mg Documented by: Lidocaine HCl (Xylocaine 1%) 50 ml INJECT ONETIME PRN PRN Reason: Laceration repair Methylergonovine Maleate (Methergine) 0.2 mg IM ASDIRECTED PRN PRN Reason: Post Hemorrhage Misoprostol (Cytotec) 200 mcg PO ONETIME PRN PRN Reason: Post Hemorrhage Nalbuphine HCl (Nubain) 10 mg IVPUSH Q1H PRN PRN Reason: Pain (severe 7-10) Ondansetron HCl (Zofran) 4 mg IVPUSH Q6H PRN PRN Reason: Nausea Last Admin: 02/25/20 03:44 Dose: 4 mg Documented by: Oxycodone HCl (Oxycodone) 5 mg PO Q2H PRN PRN Reason: Pain Sodium Chloride (Saline Flush) 10 ml FLUSH ASDIRECTED PRN PRN Reason: Keep Vein Open Sodium Chloride (Saline Flush) 2.5 ml FLUSH ASDIRECTED PRN PRN Reason: Keep Vein Open Sodium Chloride (Normal Saline) 10 ml IV ASDIRECTED PRN PRN Reason: IV Use Sterile Water (Sterile Water For Irrigation) 1,000 ml IRR ASDIRECTED PRN PRN Reason: delivery Witbrandon Beckel (Tucks) 1 pad TOP ASDIRECTED PRN PRN Reason: comfort care Last Admin: 02/25/20 15:46 Dose: 1 tub Documented by: Discontinued Medications Butorphanol Tartrate (Stadol) 1 mg IVPUSH Q1H PRN PRN Reason: Pain Last Admin: 02/25/20 04:24 Dose: 1 mg Documented by: Fentanyl (Sublimaze) Confirm Administered Dose 100 mcg .ROUTE .STK-MED ONE Stop: 02/25/20 05:55 Last Admin: 02/26/20 09:03 Dose: Not Given Documented by: Lactated Ringer's (Ringers, Lactated) 1,000 mls @ 999 mls/hr IV .BOLUS ONE Stop: 02/25/20 04:25 Last Infusion: 02/25/20 05:27 Dose: Infused Documented by: Ropivacaine (Naropin 0.2%) Confirm Administered Dose 100 mls @ as directed .ROUTE .STK-MED ONE Stop: 02/25/20 05:56 Last Admin: 02/26/20 09:02 Dose: Not Given Documented by: Measles/Mumps/Rubella Vaccine Live (M-M-R Ii Vaccine) 0.5 ml SUBCUT .ONCE ONE Stop: 02/25/20 13:16 Ropivacaine (Naropin 0.2%) Confirm Administered Dose 20 ml .ROUTE .STK-MED ONE Stop: 02/25/20 05:56 Last Admin: 02/26/20 09:02 Dose: Not Given Documented by: - Problem List Review Problem List Initiated/Reviewed/Updated: Yes - Plan Plan:: Meeting all milestones, plan for discharge home today.
== END 2020-02-27 23:50 | disposition home or self-care (01) | DRG 807 ==
LOC: MW.OBCHECK 00:01 → MW.OB 00:02 → MW.OBCHECK 04:48 → MW.OB 04:48 → OBSVTOIN 12:28 → MW.OB 19:16
PROVIDERS: ADMIT Obstetrics & Gynecology; ATTEND Obstetrics & Gynecology
PROC: 10E0XZZ Delivery of Products of Conception, External Approach (ICD-10-PCS; principal; 2020-02-25)
PROC: 0UQGXZZ Repair Vagina, External Approach (ICD-10-PCS; 2020-02-25)
PROC: 10907ZC Drainage of Amniotic Fluid, Therapeutic from Products of Conception, Via Natural or Artificial Opening (ICD-10-PCS; 2020-02-25)
DX: O71.4 Obstetric high vaginal laceration alone (principal); Z37.0 Single live birth; Z3A.40 40 weeks gestation of pregnancy; Z20.828 Contact with and (suspected) exposure to other viral communicable diseases
CPT/HCPCS: 36415; 51702; 59025; 59409; 80053; 81001; 82570; 82803; 84156; 84550; 85014; 85018; 85025; 86592; 86850; 86900; 86901; A9270-GY; J0595; J2405; J2590; J7120; U0002